=== PATIENT | female | born 1970 | race African-American/Black ===

== ENCOUNTER 2016-07-24 23:38 | Emergency (ER) | payer MEDICAID ==
[2016-07-25 00:19] VITALS: RESP 16
[2016-07-25] MEDS ORDERED: NS 1,000 ML IV ONE ×2 (01:21→01:39)
[2016-07-25] MEDS ORDERED: ONDANSETRON 4 MG/2 ML VIAL IVP ONE (01:39)
--- NOTE | 2016-07-25 01:40 | EDPHY ---
HPI/HX/ROS/PE/MDM Narrative: Chief complaint: Not able to sleep, general malaise, nausea vomiting HPI: 45-year-old female with a past medical history of diabetes, chronic pain, anxiety and depression presenting complaining of general malaise, nausea, vomiting, unable to eat keep anything down for the last 2 days, and insomnia. Patient states these symptoms have been going on since the middle of May. Patient states that she lives in [place] and gets her health care there. 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 Patient states she has had nausea vomiting for the last 2 days and not able to keep anything down. No fevers or chills. No chest pain or shortness of breath. States that her doctors have been adjusting her medications to control her diabetes. She is type 2 diabetic on Levemir and NovoLog. Has been taking her usual medications. ROS: 10 point Review of Systems is negative except as noted in the HPI. Physical exam: Gen: Awake, Alert, No Distress HEENT: Nose: no rhinorrhea Eyes: PERRLA, EOMI Mouth: Moist mucosa Neck: Supple, no JVD Chest: nontender, lungs clear to auscultation Heart: S1, S2 normal, no murmur Abd: Soft, non-tender, no guarding Back: no CVA tenderness, no midline tenderness Ext: no edema, non-tender Skin: no rash Neuro: CN II-XII intact, Sensation grossly intact, Strength 5/5 in bilateral upper and lower extremities ED Course: 45-year-old woman presenting complaining of a myriad of complaints including nausea vomiting, general malaise, insomnia. These have been going on for weeks. Although she does state that she has been vomiting for the last couple days. She also has a history of diabetes. Will place an IV, give her antiemetics and IV fluids. Will check her chemistry and re-evaluate. Patient's blood sugars noted to be to 90s otherwise her chemistries unremarkable. CBC is unremarkable. Patient is feeling much better after fluids and antiemetics. She is happy to go home. Will plan to discharge have her follow up with her doctor in [place] in the next couple days. - Data Points Laboratory Results: Laboratory Results 07/25/16 02:25 07/25/16 02:25 07/25/16 02:25 WBC 7.93 10^3/uL (3.80-9.50) RBC 4.51 10^6/uL (4.18-5.33) Hgb 13.6 g/dL (12.6-16.3) Hct 39.3 % (38.0-47.0) MCV 87.1 fL (81.5-99.8) MCH 30.2 pg (27.9-34.1) MCHC 34.6 g/dL (32.4-36.7) RDW 12.7 % (11.5-15.2) Plt Count 390 10^3/uL (150-400) MPV 9.5 fL (8.7-11.7) Neut % (Auto) 49.7 % (39.3-74.2) Lymph % (Auto) 40.4 % (15.0-45.0) [place] % (Auto) 6.1 % (4.5-13.0) Eos % (Auto) 3.2 % (0.6-7.6) Baso % (Auto) 0.5 % (0.3-1.7) Nucleat RBC Rel Count 0.3 H % (0.0-0.2) Absolute Neuts (auto) 3.95 10^3/uL (1.70-6.50) Absolute Lymphs (auto) 3.20 H 10^3/uL (1.00-3.00) Absolute Monos (auto) 0.48 10^3/uL (0.30-0.80) Absolute Eos (auto) 0.25 10^3/uL (0.03-0.40) Absolute Basos (auto) 0.04 10^3/uL (0.02-0.10) Absolute Nucleated RBC 0.02 H 10^3/uL (0-0.01) Immature Gran % 0.1 % (0.0-1.1) Immature Gran # 0.01 10^3/uL (0.00-0.10) Sodium 138 mEq/L (134-144) Potassium 4.1 mEq/L (3.5-5.2) Chloride 102 mEq/L (97-110) Carbon Dioxide 22 mEq/l (22-31) Anion Gap 14 mEq/L (8-16) BUN 16 mg/dL (7-23) Creatinine 0.6 mg/dL (0.6-1.0) Estimated GFR > 60 Glucose 294 H mg/dL (70-100) Calcium 9.4 mg/dL (8.5-10.4) Total Bilirubin 0.5 mg/dL (0.1-1.4) Conjugated Bilirubin 0.5 mg/dL (0.0-0.5) Unconjugated Bilirubin 0.0 mg/dL (0.0-1.1) AST 28 IU/L (14-46) ALT 37 IU/L (9-52) Alkaline Phosphatase 90 IU/L (38-126) Total Protein 8.2 g/dL (6.3-8.2) Albumin 4.4 g/dL (3.5-5.0) Lipase 273.0 IU/L (23-300) Medications Given: Discontinued Medications Sodium Chloride (Ns) 1,000 mls @ 0 mls/hr IV ONCE ONE PRN Reason: Wide Open Stop: 07/25/16 01:22 Last Admin: 07/25/16 01:21 Dose: 1,000 mls Ondansetron HCl (Zofran) 4 mg IVP EDNOW ONE Stop: 07/25/16 01:40 Last Admin: 07/25/16 01:47 Dose: Not Given Promethazine HCl (Phenergan Injection) 12.5 mg IVP EDNOW ONE Stop: 07/25/16 01:51 Last Admin: 07/25/16 01:54 Dose: 12.5 mg General Time Seen by Provider: 07/25/16 01:23 Initial Vital Signs: Initial Vital Signs Temperature (C) 36.4 C 07/25/16 00:14 Heart Rate 99 07/25/16 00:14 Respiratory Rate 16 07/25/16 00:14 Blood Pressure 108/90 H 07/25/16 00:14 O2 Sat (%) 93 07/25/16 00:14 O2 Delivery Mode Room Air Allergies/Adverse Reactions: acetaminophen Allergy (Verified 07/25/16 00:20) diphenhydramine HCl [From Benadryl] Allergy (Verified 07/25/16 00:20) ibuprofen Allergy (Verified 07/25/16 00:20) levetiracetam [From Keppra] Allergy (Verified 07/25/16 00:20) metformin Allergy (Verified 07/25/16 00:20) ondansetron HCl [From Zofran (as hydrochloride)] Allergy (Verified 07/25/16 00: 20) prednisone Allergy (Verified 07/25/16 00:20) quetiapine fumarate [From Seroquel] Allergy (Verified 07/25/16 00:20) risperidone Allergy (Verified 07/25/16 00:20) topiramate [From Topamax] Allergy (Verified 07/25/16 00:20) ziprasidone HCl [From Geodon] Allergy (Verified 07/25/16 00:20) ziprasidone mesylate [From Geodon] Allergy (Verified 07/25/16 00:20) Home Medications: Medication Instructions Recorded Flexeril 07/25/16 Hydroxyzine HCl 07/25/16 LYRICA 07/25/16 Levemir 07/25/16 Novolog Flexpen 07/25/16 Oxybutynin Chloride 07/25/16 Qvar 07/25/16 Ranitidine HCl 07/25/16 Ventolin Hfa Inhaler 07/25/16 Departure - Departure Disposition: Home, Routine, Self-Care Clinical Impression: Dehydration, Vomiting, Hyperglycemia Condition: Good Instructions: Acute Nausea and Vomiting (ED), Diabetic Hyperglycemia (ED) Additional Instructions: Follow up with your doctor in the next couple days for re-evaluation. Return to the emergency depart for increasing nausea vomiting, chest pain, shortness of breath, fevers, chills, or any other concerns.
[2016-07-25] MEDS ORDERED: PROMETHAZINE HCL 25 MG/ML INJ ONE (01:46)
[2016-07-25] MEDS ORDERED: PROMETHAZINE HCL 25 MG/ML INJ IVP ONE (01:50)
[2016-07-25 02:34] LABS: % IMMATURE GRANULYOCYTES 0.1 % (0.0-1.1); ABSOLUTE IMMATURE GRANULOCYTES 0.01 10^3/uL (0.00-0.10); ABSOLUTE NRBC COUNT 0.02 10^3/uL (0-0.01); ADD DIFF? NO; ADD MORPH? NO; ADD SCAN? NO; ATYPICAL LYMPHOCYTE FLAG 0 (0-99); FRAGMENT RBC FLAG 0 (0-99); HEMATOCRIT 39.3 % (38.0-47.0); HEMOGLOBIN 13.6 g/dL (12.6-16.3); LEFT SHIFT FLG 0 (0-99); LIPEMIA HEMOLYSIS FLAG 90 (0-99); MEAN CELL HEMOGLOBIN 30.2 pg (27.9-34.1); MEAN CELL HEMOGLOBIN CONCENTR. 34.6 g/dL (32.4-36.7); MEAN CELL VOLUME 87.1 fL (81.5-99.8); MEAN PLATELET VOLUME 9.5 fL (8.7-11.7); NRBC-AUTO% 0.3 % (0.0-0.2); PLATELET CLUMPS FLAG 20 (0-99); PLATELET COUNT 390 10^3/uL (150-400); RED BLOOD CELL COUNT 4.51 10^6/uL (4.18-5.33); RED CELL DISTRIBUTION WIDTH 12.7 % (11.5-15.2)
[2016-07-25 02:43] LABS: ALANINE AMINOTRANSFERASE 37 IU/L (9-52); ALBUMIN 4.4 g/dL (3.5-5.0); ALKALINE PHOSPHATASE 90 IU/L (38-126); ANION GAP 14 mEq/L (8-16); ASPARTATE AMINOTRANSFERASE 28 IU/L (14-46); BILIRUBIN,TOTAL 0.5 mg/dL (0.1-1.4); BILIRUBIN-CONJUGATED 0.5 mg/dL (0.0-0.5); CALCIUM 9.4 mg/dL (8.5-10.4); CARBON DIOXIDE 22 mEq/l (22-31); CHLORIDE 102 mEq/L (97-110); CREATININE 0.6 mg/dL (0.6-1.0); GLOMERULAR FILTRATION RATE > 60; GLUCOSE 294 mg/dL (70-100); POTASSIUM 4.1 mEq/L (3.5-5.2); SODIUM 138 mEq/L (134-144); TOTAL PROTEIN 8.2 g/dL (6.3-8.2)
[2016-07-25 04:07] VITALS: BP 107/80; PULSE 89; TEMP 98.2; O2SAT 97
== END 2016-07-25 04:06 | disposition home or self-care (01) ==
LOC: EDSEX
DX: E11.65 Type 2 diabetes mellitus with hyperglycemia (principal); E86.0 Dehydration
CPT/HCPCS: 96374; J2405; J2550